=== PATIENT | male | born 1975 | race Caucasian/White ===

== ENCOUNTER 2020-07-02 14:42 | Emergency (ER) | payer OTHER ==
[~2020-07-02] VITALS: Ht 185.4 cm; Wt 127.0 kg
[~2020-07-02 14:42] MED LIST: NAPR-682 PO; ORPH100T PO
[2020-07-02 15:59] VITALS: BP 144/87
[2020-07-02] MEDS ORDERED: HYDR-3164 PO (16:28)
[2020-07-02] MEDS ORDERED: ORPH100T PO (16:28)
--- NOTE | 2020-07-02 16:30 | PHYS DOC ---
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 He states this is happened before in the past. He states when going from sitting to standing it is painful. He states it is more in his mid to left side of his lower back. He states it is a pulling spasm type pain. Rates his pain a 3 out of 10 while sitting but states is a 10 out of 10 when standing. Denies numbness or tingling, falling, loss of bowel bladder, focal weakness. Patient has a history of low back pain and strain, high cholesterol, hypertension. Patient refusing any imaging at this time. He states he was to follow-up with his primary care provider. Review of Systems: Review of Systems: Constitutional: Denies fever or chills. [] Eyes: Denies change in visual acuity. [] HENT: Denies nasal congestion or sore throat. [] Respiratory: Denies cough or shortness of breath. [] Cardiovascular: Denies chest pain or edema. [] GI: Denies abdominal pain, nausea, vomiting, bloody stools or diarrhea. [] : Denies dysuria. [] Musculoskeletal: + Low back pain or denies joint pain. [] Integument: Denies rash. [] Neurologic: Denies headache, focal weakness or sensory changes. [] Endocrine: Denies polyuria or polydipsia. [] Lymphatic: Denies swollen glands. [] Psychiatric: Denies depression or anxiety. [] Heart Score: Risk Factors: Risk Factors: DM, Current or recent (<one month) smoker, HTN, HLP, family history of CAD, obesity. Risk Scores: Score 0 - 3: 2.5% MACE over next 6 weeks - Discharge Home Score 4 - 6: 20.3% MACE over next 6 weeks - Admit for Clinical Observation Score 7 - 10: 72.7% MACE over next 6 weeks - Early Invasive Strategies Allergies: Allergies: Allergies Coded Allergies Type Severity Reaction Last Updated Verified No Known Drug Allergies 09/30/16 No Physical Exam: PE: Constitutional: Well developed, well nourished, no acute distress, non-toxic nicola earance. [] HENT: Normocephalic, atraumatic, bilateral external ears normal, oropharynx moist, no oral exudates, nose normal. [] Eyes: PERRLA, EOMI, conjunctiva normal, no discharge. [] Neck: Normal range of motion, no tenderness, supple, no stridor. [] Cardiovascular:Heart rate regular rhythm, no murmur [] Lungs & Thorax: Bilateral breath sounds clear to auscultation [] Abdomen: Bowel sounds normal, soft, no tenderness, no masses, no pulsatile masses. [] Skin: Warm, dry, no erythema, no rash. [] Back: Low mid to the left tenderness, no CVA tenderness. [] Extremities: No tenderness, no cyanosis, no clubbing, ROM intact, no edema. [] Neurologic: Alert and oriented X 3, normal motor function, normal sensory function, no focal deficits noted. [] Psychologic: Affect normal, judgement normal, mood normal. [] EKG: EKG: [] Radiology/Procedures: Radiology/Procedures: [] Course & Med Decision Making: Course & Med Decision Making Pertinent Labs and Imaging studies reviewed. (See chart for details) See HPI. Alert and oriented x4. Ambulatory to steady gait. No saddle paresthesias. Ambulatory with a slow steady gait. Moving all extremities with normal strength. Patient does have tenderness to the low mid back in the lumbar and over to the left. Patient is educated that I cannot properly diagnose him if there is bulging disc or something else wrong with his actual spine without any imaging. Patient states his understanding of this. He states he wants to follow-up with his primary care provider. Will be given pain medicine and muscle relaxers. [] Dragon Disclaimer: Dragon Disclaimer: This electronic medical record was generated, in whole or in part, using a voice recognition dictation system. Departure Departure Impression: Primary Impression: Lumbosacral strain Qualified Codes: S39.012A - Strain of muscle, fascia and tendon of lower back, initial encounter Disposition: 01 DC HOME SELF CARE/HOMELESS Condition: STABLE Referrals: TAYA GONSALEZ MD (PCP) Patient Instructions: Low Back Strain with Rehab-[facility] Additional Instructions: Follow-up with primary care provider soon as possible. Take medications as prescribed and with food. Remember these medications make you sleepy and do not drink or drive while taking them. Scripts Orphenadrine Citrate (ORPHENADRINE CITRATE) 100 Mg Tablet.er 1 TAB PO BID, #25 TAB Prov: PEGGY HUMPHREY APRN 07/02/20 Hydrocodone/Apap 5-325 (NORCO 5-325 TABLET) 1 Each Tablet 1 TAB PO PRN Q6HRS PRN for PAIN, #15 TAB 0 Refills Prov: PEGGY HUMPHREY APRN 07/02/20 PEGGY HUMPHREY APRN Jul 02, 2020 16:30
== END 2020-07-02 16:55 | disposition home or self-care (01) ==
LOC: ER 14:42
DX: S39.012A Strain of muscle, fascia and tendon of lower back, initial encounter (principal); E78.00 Pure hypercholesterolemia, unspecified; I10 Essential (primary) hypertension; W10.8XXA Fall (on) (from) other stairs and steps, initial encounter; Y93.89 Activity, other specified; Y92.89 Other specified places as the place of occurrence of the external cause; Y99.8 Other external cause status
CPT/HCPCS: 99283